=== PATIENT | female | born 1960 | race Two or more races ===

== ENCOUNTER 2020-02-27 08:28 | Outpatient (CLI) | payer MEDICAID | END 2020-02-27 23:59 | disposition home or self-care (01) | LOC: CVU 08:28 | PROVIDERS: ATTEND Internal Medicine Cardiovascular Disease | DX: I10 Essential (primary) hypertension (principal); R00.2 Palpitations; Z87.891 Personal history of nicotine dependence | CPT/HCPCS: C8929; Q9957 ==